=== PATIENT | male | born 1985 | race Hispanic/Latino ===

== ENCOUNTER 2017-12-24 05:16 | Emergency (ER) | payer SELFPAY ==
[2017-12-24] MEDS ORDERED: Lidocaine 4% Cream 5 GM TUBE w/ Tegaderm ONE (05:39)
[2017-12-24] MEDS ORDERED: Adacel (T-DAP) 0.5 ML VIAL ONE (05:39)
[2017-12-24] MEDS ORDERED: Bacitracin Zinc 1 Packet ONE (06:49)
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
== END 2017-12-24 08:08 | disposition home or self-care (01) ==
LOC: ERS 05:16
DX: S01.111A Laceration without foreign body of right eyelid and periocular area, initial encounter (principal); S20.419A Abrasion of unspecified back wall of thorax, initial encounter; F10.129 Alcohol abuse with intoxication, unspecified; X99.1XXA Assault by knife, initial encounter
CPT/HCPCS: 12011; 36415; 70450; 70486; 72125; 80307; 90471; 90715